=== PATIENT | male | born 1950 | race Caucasian/White ===

== ENCOUNTER 2019-11-25 08:45 | Day surgery (SDC) | payer MEDICARE ==
[2019-11-24 14:50] LABS: HEMATOCRIT 35.3 % (42.0-54.0); MCH 30.4 pg (26.0-34.0); MCV 89.4 fL (80.0-100.0); MEAN PLATELET VOLUME 9.3 fL (7.4-10.4); RBC 3.95 10x6/uL (4.20-6.10); RDW 12.8 % (11.5-14.5); WBC 3.8 10x3/uL (4.8-10.8)
[~2019-11-25] VITALS: Ht 167.6 cm; Wt 56.7 kg
--- NOTE | ~2019-11-25 | OP ---
PATIENT NAME: CHRIS POTTS MEDICAL RECORD: [id number] :50 LOCATION:[facility] ADMISSION DATE: SURGEON: ANIYA ANTON MD DATE OF OPERATION: 11/25/2019 PREOPERATIVE DIAGNOSIS: Lumbar spinal stenosis at L4-L5, right with foraminal stenosis. POSTOPERATIVE DIAGNOSIS: Lumbar spinal stenosis at L4-L5, right with foraminal stenosis. PROCEDURES: Lumbar laminotomy, medial facetectomy and foraminotomy L4-L5 on the right with METRx retractor. SURGEON: Aniya Anton MD. DESCRIPTION AND TECHNIQUE: After induction of general endotracheal anesthesia, the patient was rolled prone on a Emre frame. Lumbar spine was prepped and draped in usual sterile fashion. Fluoroscopic x-ray and spinal needle localized the L4-L5 interspace on the right side. After infiltration 1:100,000 epinephrine, a stab incision was created with a #11 blade. Series of dilators were used to advance the METRx retractor at L4-L5 interspace on the right side. The level was confirmed with fluoroscopic x-ray. A Midas-Richard drill and microscope were used to perform laminotomy, medial facetectomy and foraminotomy at L4-L5 on the right. Hypertrophied ligamentum flavum was removed with Cloward rongeurs. Following this, the L4 and L5 nerve roots were decompressed well. The disc space was inspected and found to cause no significant nerve root compression. Meticulous hemostasis was maintained throughout the wound. The wound was irrigated with copious amounts of Ancef irrigant solution. The fascia was closed with 2-0 Vicryl suture, the subdermal layer was closed with 3-0 Vicryl suture. The skin was reapproximated with gennaro. A sterile dressing was applied to the wound. The patient was awakened in good condition and taken to recovery. All counts were reported as correct. Estimated blood loss was minimal. TRANSINT:[id number] Voice Confirmation ID: [id number] DOCUMENT ID: [id number] ANIYA ANTON MD CC: [id number] DICTATION DATE: 11/30/19805 MANAGER SOCIAL MEDIA: 11/30/1958 [facility] 11/25/19 [place] [address]
[~2019-11-25 08:45] MED LIST: ACCUPRIL20 MG PO; AMITRIPTYLINE150 MG PO; CELEBREX200 MG PO; LIPITOR20 MG PO; VALIUM5 MG PO
[2019-11-25 09:26] VITALS: BP 171/92; Ht 167.6 cm; Wt 56.7 kg
--- NOTE | 2019-11-25 14:58 | NUR ---
NO NUMBNESS OR TINGLING REPORTED EQUAL STRENGHTS BOTH LOWER EXTREMETIES
== END 2019-11-25 16:26 | disposition home or self-care (01) ==
LOC: D.PAN 08:45 → D.OPS 11:45 → D.PAN 11:45
PROVIDERS: Anesthesiology; ATTEND Neurological Surgery
DX: M48.061 Spinal stenosis, lumbar region without neurogenic claudication (principal); M54.16 Radiculopathy, lumbar region